=== PATIENT | female | born 1960 | race Caucasian/White ===

== ENCOUNTER 2022-05-12 10:52 | Emergency (ER) | payer OTHER, SELFPAY ==
[2022-05-12 11:07] VITALS: BP 153/80; PULSE 78; RESP 18; TEMP 36.4; O2SAT 98
--- NOTE | 2022-05-12 11:50 | ED.URI ---
HPI - URI/Sore Throat General Chief Complaint: Upper Respiratory Infection Stated Complaint: cold symptoms,bilateral ear pain Source: patient Mode of arrival: ambulatory History of Present Illness HPI Narrative: This is a 61-year-old female who presented to our urgent care with complaints of a cough with yellow greenish sputum, nasal congestion, bilateral ear fullness, that she has had for the last 2 weeks. Patient notes that she took a COVID test which was negative. Patient notes that she did take DayQuil to relieve her symptoms with no relief. The patient denies SOB, CP, palpitation, extremity numbness, lightheadedness, dizziness, constipation, diarrhea, chills, or fever. Related Data Home Medications Medication Instructions Recorded Confirmed dulaglutide 0.75 mg/0.5 mL 0.75 mg subcut DIRECTED 05/12/22 05/12/22 subcutaneous pen injector (Trulicity) escitalopram oxalate 20 mg tablet 30 mg DAILY 05/12/22 05/12/22 lisdexamfetamine 40 mg capsule 40 mg DAILY 05/12/22 05/12/22 (Vyvanse) magnesium 250 mg tablet 250 mg PO DAILY 05/12/22 05/12/22 mecobalamin (vitamin B12) 1,000 1,000 mcg PO DAILY 05/12/22 05/12/22 mcg chewable tablet metformin 500 mg tablet 500 mg TID 05/12/22 05/12/22 multivit with minerals-iron 18 1 tablet PO DAILY 05/12/22 05/12/22 mg-folic ac 400 mcg-vit K 25 mcg tablet (Adults Multivitamin) pregabalin 100 mg capsule 100 mg TID 05/12/22 05/12/22 rosuvastatin 10 mg tablet 10 mg DAILY 05/12/22 05/12/22 trazodone 50 mg tablet 100 mg HS 05/12/22 05/12/22 Allergies Allergy/AdvReac Type Severity Reaction Status Date / Time No Known Allergies Allergy Verified 05/12/22 11:20 Review of Systems Review of Systems: A 14 organ system Review of Systems was performed and pertinent positives included in the HPI, otherwise remaining ROS is negative. Exam Narrative: GENERAL: This is a well-nourished, well-developed patient, in no apparent distress. HEAD: normocephalic, atraumatic. Frontal sinus pain EYES: PERRL. Sclera clear/white. Vision is grossly intact. EARS: External ears normal, auditory canals clear and without drainage, TMs bulging. Hearing grossly intact. NOSE: External nose normal with no obvious nasal discharge, nares without redness, no rhinorrhea. THROAT: Mucous membranes moist, posterior pharynx clear. NECK: Neck supple, non-tender without lymphadenopathy, masses or thyromegaly. CARDIOVASCULAR: Regular rate and rhythm without murmurs, gallops, or rubs. RESPIRATORY: Clear to auscultation. Breath sounds equal bilaterally. No wheezes, rales, or rhonchi. GASTROINTESTINAL: Abdomen soft, non-tender, nondistended. Bowel sounds are active. No hepato-splenomegaly, or palpable masses. No guarding. SKIN: warm, intact with no suspicious lesions or rash, good texture and turgor. NEURO: awake, alert, and oriented to person, place and time. There were no obvious focal neurologic abnormalities. EXTREMITIES: Normal range of motion. No edema. No calf tenderness. Course Course Emergency Course: Patient will discharge home with Augmentin, Diflucan, Claritin, Tessalon Perles and guaifenesin Level of Care: Express Care Visit Vital Signs Vital signs: Vital Signs Temperature 97.5 F L 05/12/22 11:07 Pulse Rate 78 05/12/22 11:07 Respiratory Rate 18 05/12/22 11:07 Blood Pressure 153/80 H 05/12/22 11:07 Pulse Oximetry 98 05/12/22 11:07 Oxygen Delivery Room Air 05/12/22 11:07 Temperature 97.5 F L 05/12/22 11:07 Pulse Rate 78 05/12/22 11:07 Respiratory Rate 18 05/12/22 11:07 Blood Pressure 153/80 H 05/12/22 11:07 Pulse Oximetry 98 05/12/22 11:07 Oxygen Delivery Room Air 05/12/22 11:07 MDM - URI/Sore Throat Differential Diagnosis Differential diagnosis: Likely upper respiratory infection, otitis media, sinusitis and viral infection Discharge Plan Discharge Clinical Impression: Sinusitis Patient Disposition: Home, Self-Care Condition: Stable In
== END 2022-05-12 11:52 | disposition home or self-care (01) ==
PROVIDERS: Emergency Provider Nurse Practitioner; PCP Internal Medicine
DX: J32.9 Chronic sinusitis, unspecified (principal)
CPT/HCPCS: 99203; G0463